=== PATIENT | female | born 2000 | race Caucasian/White ===

== ENCOUNTER 2021-02-21 15:10 | Emergency (ER) | payer MEDICAID ==
[~2021-02-21] VITALS: Ht 162.6 cm; Wt 59.0 kg
--- NOTE | 2021-02-21 15:10 | NUR ---
PT BIB RA 102 FROM HOME,SEIZURE EPISODE WITNESSED BY MOM. 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 KEPT RESTED AND COMFORTABLE. WILL CONTINUE TO MONITOR.
[2021-02-21] MEDS ORDERED: CIPR-262 PO (15:14)
[2021-02-21] MEDS ORDERED: LEVE500T9 PO (15:16)
--- NOTE | 2021-02-21 15:19 | NUR ---
AT BEDSIDE FOR EVAL.
[2021-02-21] MEDS ORDERED: LEVETIRACETAM (500MG) 500 MG in IV NS 0.9% 100 ML IV ONE (15:30)
--- NOTE | 2021-02-21 15:45 | NUR ---
BLOOD DRAWN AND SENT TO LAB.
[2021-02-21 15:49] LABS: BASOPHILS # (AUTO) 0.1 /CMM (0.0-0.2); BASOPHILS % (AUTO) 0.9 % (0.0-2.0); EOSINOPHILS % (AUTO) 1.7 % (0.0-6.0); HEMATOCRIT 38 % (33-45); HEMOGLOBIN 12.7 g/dL (11.5-14.8); LYMPHOCYTES # (AUTO) 2.8 /CMM (0.8-4.8); LYMPHOCYTES % (AUTO) 35.6 % (20.0-44.0); MEAN CORPUSCULAR HGB CONC 34 g/dl (31.0-36.0); MEAN CORPUSCULAR VOLUME 91 fL (82-100); MONOCYTES # (AUTO) 0.6 /CMM (0.1-1.30); MONOCYTES % (AUTO) 7.6 % (2.0-12.0); NEUTROPHILS # (AUTO) 4.3 /CMM (1.8-8.9); NEUTROPHILS % (AUTO) 54.2 % (43.0-81.0); PLATELET COUNT (AUTO) 279 /CMM (150-450); RED BLOOD CELL COUNT(AUTO) 4.16 MIL/uL (4.0-5.2)
[2021-02-21 15:57] LABS: CALCIUM, SERUM 8.4 mg/dL (8.5-10.1); CREATININE 0.7 mg/dL (0.6-1.3)
[2021-02-21 16:35] VITALS: BP 125/72
--- NOTE | 2021-02-21 16:35 | NUR ---
IV removed. Catheter intact and site benign. Pressure and 4x4 applied to site. No bleeding noted. Patient discharged to home in stable condition. Written and verbal after care instructions given to Patient's mom verbalizes understanding of instruction.
--- NOTE | 2021-02-21 16:40 | NUR ---
Patient does not wish to proceed with medical care recommended by Dr. Haider. Patient given information related to possible complications, up to and including , which could occur as a result of leaving the hospital at this time. Patient verbalizes understanding of risks involved due to leaving against medical advice. Patient has signed AMA form.
== END 2021-02-21 16:36 | disposition left against medical advice (07) ==
LOC: ER 15:13
DX: S90.112A Contusion of left great toe without damage to nail, initial encounter (principal); G40.909 Epilepsy, unspecified, not intractable, without status epilepticus; Z88.1 Allergy status to other antibiotic agents; Z79.899 Other long term (current) drug therapy; X58.XXXA Exposure to other specified factors, initial encounter; Y93.89 Activity, other specified; Y92.89 Other specified places as the place of occurrence of the external cause; Y99.8 Other external cause status
CPT/HCPCS: 36415; 70450; 72125; 73660; 80048; 85025; 93005; 96365; 99285; J1953; J7030

== ENCOUNTER 2021-02-26 09:16 | Emergency (ER) | payer MEDICAID ==
[~2021-02-26] VITALS: Ht 165.1 cm; Wt 70.8 kg
[~2021-02-26 09:16] MED LIST: LEVE500T9 PO
--- NOTE | 2021-02-26 09:35 | NUR ---
[id number] FROM HOME C/O WEAK & DIZZINESS THIS AM, CURRENTLY ON HER PERIOD. THE PATIENT DENIES PAIN. IN ROOM AIR AND DENIES SOB. RESPIRATION REGULAR AND UNLABORED. WILL CONTINUE TO MONITOR THE PATIENT.
--- NOTE | 2021-02-26 09:56 | NUR ---
MOTHER SAY OK FOR BLOOD DRAW
--- NOTE | 2021-02-26 10:00 | NUR ---
MOTHER AT THE BEDSIDE.
[2021-02-26 10:22] LABS: BASOPHILS # (AUTO) 0.1 /CMM (0.0-0.2); BASOPHILS % (AUTO) 0.6 % (0.0-2.0); EOSINOPHILS % (AUTO) 1.6 % (0.0-6.0); HEMATOCRIT 37 % (33-45); HEMOGLOBIN 12.4 g/dL (11.5-14.8); LYMPHOCYTES # (AUTO) 1.3 /CMM (0.8-4.8); LYMPHOCYTES % (AUTO) 10.5 % (20.0-44.0); MEAN CORPUSCULAR HGB CONC 34 g/dl (31.0-36.0); MEAN CORPUSCULAR VOLUME 91 fL (82-100); MONOCYTES % (AUTO) 7.6 % (2.0-12.0); NEUTROPHILS # (AUTO) 10.1 /CMM (1.8-8.9); NEUTROPHILS % (AUTO) 79.7 % (43.0-81.0); PLATELET COUNT (AUTO) 272 /CMM (150-450); RED BLOOD CELL COUNT(AUTO) 4.06 MIL/uL (4.0-5.2); WHITE BLOOD COUNT (AUTO) 12.6 K/uL (4.3-11.0)
[2021-02-26 10:30] LABS: CALCIUM, SERUM 8.5 mg/dL (8.5-10.1); CREATININE 0.7 mg/dL (0.6-1.3)
--- NOTE | 2021-02-26 11:24 | NUR ---
Patient discharged to home in stable condition. Written and verbal after care instructions given. Patient and her mother verbalizes understanding of instruction. The patient left ER in stable condition and accompanied with her mother.
[2021-02-26 11:27] VITALS: BP 105/64
== END 2021-02-26 11:28 | disposition home or self-care (01) ==
LOC: ER 09:18
DX: R55 Syncope and collapse (principal); Z88.1 Allergy status to other antibiotic agents; Z79.899 Other long term (current) drug therapy
CPT/HCPCS: 36415; 80048-TC; 85025-TC

== ENCOUNTER 2021-07-17 16:45 | Emergency (ER) | payer MEDICAID ==
[~2021-07-17] VITALS: Ht 154.9 cm; Wt 75.3 kg
--- NOTE | 2021-07-17 17:15 | NUR ---
[id number] FRM HOME FOR WITNESSED SEIZURE BY MOTHER. BG 43 IN FIELD D10 WAS GIVEN DEPARTMENT COORDINATOR. AWAKE VERBALLY RESPONSIVE DEPARTMENT COORDINATOR. THE PATIENT IS ALERT AND ORIENTED X2. DENIES PAIN. IN ROOM AIR AND DENIES SOB. RESPIRATION REGULAR AND UNLABORED. ATTACHED TO THE MONITOR. WILL CONTINUE TO MONITOR THE PATIENT.
--- NOTE | 2021-07-17 17:53 | NUR ---
WAITING FOR PHARM TO DELIVER ORDERED ETELVINARA
[2021-07-17] MEDS ORDERED: LEVETIRACETAM (500MG) 1,000 MG in IV NS 0.9% 100 ML IV SCH (18:00)
[2021-07-17] MEDS ORDERED: IV NS 0.9% 500 ML IV ONE (18:00)
--- NOTE | 2021-07-17 18:09 | NUR ---
THE PATIENT AND THE MOTHER REFUSED KEPPRA AND ASKED IV FLUID TO BE STOPPED DUE TO WANTING TO LEAVE AMA. THE PATIENT AND THE MOTHER PROVIDED EXPLANTION. THEY STILL INSISTED TO GO AMA. DR KATERINA CAMARILLO.
--- NOTE | 2021-07-17 18:10 | NUR ---
IV removed. Catheter intact and site benign. Pressure and 4x4 applied to site. No bleeding noted.Patient does not wish to proceed with medical care recommended by Dr. Haider. Patient given information related to possible complications, up to and including , which could occur as a result of leaving the hospital at this time. Patient verbalizes understanding of risks involved due to leaving against medical advice. Patient has signed AMA form. Addendum: 07/17/21 at 1811 by RUIZ LEFT ER WITH MOTHER
[2021-07-17 18:12] VITALS: BP 116/63
== END 2021-07-17 18:12 | disposition left against medical advice (07) ==
LOC: ER 16:47
DX: G40.909 Epilepsy, unspecified, not intractable, without status epilepticus (principal); E86.0 Dehydration; Z88.1 Allergy status to other antibiotic agents
CPT/HCPCS: 82962; 96360; 99283; J1953; J7030

== ENCOUNTER 2021-07-25 08:42 | Emergency (ER) | payer MEDICAID ==
[~2021-07-25] VITALS: Ht 167.6 cm; Wt 72.6 kg
[2021-07-25] MEDS ORDERED: IV NS 0.9% 500 ML BAG IV ONE (09:00)
--- NOTE | 2021-07-25 09:21 | NUR ---
PATIENTS MOTHER REFUSED BLOOD DRAW. GOOD JAY AWARE.
--- NOTE | 2021-07-25 09:25 | NUR ---
RADIOLOGY AT BEDSIDE FOR CHEST XRAY.
--- NOTE | 2021-07-25 09:32 | NUR ---
mother refusing lab test. agreed to a chest xray. states will just go to [facility]. dr guerrier into see patient and spoke to mother. Patient does not wish to proceed with medical care recommended by . Patient given information related to possible complications, up to and including , which could occur as a result of leaving the hospital at this time. Patient verbalizes understanding of risks involved due to leaving against medical advice. Patient has signed AMA form.
[2021-07-25 09:34] VITALS: BP 110/60
== END 2021-07-25 09:35 | disposition left against medical advice (07) ==
LOC: ER 08:51
DX: G40.909 Epilepsy, unspecified, not intractable, without status epilepticus (principal); Z88.1 Allergy status to other antibiotic agents; Z79.899 Other long term (current) drug therapy
CPT/HCPCS: 71045-TC; 82962-TC

== ENCOUNTER 2021-08-15 19:40 | Emergency (ER) | payer MEDICAID ==
[~2021-08-15] VITALS: Ht 157.5 cm; Wt 76.7 kg
--- NOTE | 2021-08-15 19:49 | NUR ---
PT BIBRA C/O SEIZURE. PER MOTHER, SEIZURE LASTED "3 MIN AFTER BEING GIVEN KEPRA". PT AAOX4 BREATHING EVENLY AND UNLABORED. PT ATTACHED TO MONITOR AND POX. SEIZURE PRECAUTIONS IN PLACE. SKIN IS WARM AND DRY. LEFT AC 20G INITATED. MD AT BEDSIDE. WILL CONTINUE TO MONITOR.
--- NOTE | 2021-08-15 19:53 | NUR ---
BLOOD SENT TO LAB
--- NOTE | 2021-08-15 20:15 | NUR ---
TAKEN TO CT
[2021-08-15 20:17] LABS: BASOPHILS # (AUTO) 0.1 K/uL (0.0-0.2); EOSINOPHILS % (AUTO) 1.1 % (0.0-6.0); HEMATOCRIT 43 % (33-45); HEMOGLOBIN 14.2 g/dL (11.5-14.8); MEAN CORPUSCULAR HGB CONC 33 g/dl (31.0-36.0); MEAN CORPUSCULAR VOLUME 92 fL (82-100); MONOCYTES % (AUTO) 8.1 % (2.0-12.0); NEUTROPHILS % (AUTO) 40.8 % (43.0-81.0); PLATELET COUNT (AUTO) 315 K/uL (150-450); RED BLOOD CELL COUNT(AUTO) 4.65 MIL/uL (4.0-5.2); WHITE BLOOD COUNT (AUTO) 12.2 K/uL (4.3-11.0)
[2021-08-15 20:38] LABS: CALCIUM, SERUM 8.8 mg/dL (8.5-10.1); CARBON DIOXIDE 24 mmol/L (21-32); CHLORIDE 103 mmol/L (98-107); CREATININE 0.9 mg/dL (0.6-1.3); GLUCOSE 76 mg/dL (74-106); POTASSIUM 4.3 mmol/L (3.5-5.1); SODIUM SERUM 140 mmol/L (136-145); UREA NITROGEN, BLOOD 8 mg/dL (7-18)
[2021-08-15 20:42] LABS: ALANINE AMINOTRANSFERASE 21 U/L (12-78); ALBUMIN 4.3 g/dL (3.4-5.0); ALKALINE PHOSPHATASE 54 U/L (46-116); ASPARTATE AMINOTRANSFERASE 19 U/L (15-37); BILIRUBIN,DIRECT 0.1 mg/dL (0.0-0.2); BILIRUBIN,TOTAL 0.1 mg/dL (0.2-1.0); TOTAL PROTEIN, SERUM 8.2 g/dL (6.4-8.2)
--- NOTE | 2021-08-15 20:43 | NUR ---
COVID SWAB SENT TO LAB
--- NOTE | 2021-08-15 20:48 | NUR ---
GUILLERMINA SENT TO LAB
--- NOTE | 2021-08-15 21:00 | NUR ---
LACTIC 5.5
[2021-08-15] MEDS ORDERED: IV NS 0.9% 1,000 ML BAG IV ONE (21:30)
--- NOTE | 2021-08-15 21:41 | NUR ---
Patient does not wish to proceed with medical care recommended by Dr. DAVIDSON. Patient given information related to possible complications, up to and including , which could occur as a result of leaving the hospital at this time. Patient verbalizes understanding of risks involved due to leaving against medical advice. Patient has signed AMA form. IV removed. Catheter intact and site benign. Pressure and 4x4 applied to site. No bleeding noted. Pt wheeled out to family car with mother.
[2021-08-15 21:56] VITALS: BP 100/53
[2021-08-15 22:07] LABS: BILIRUBIN,URINE NEGATIVE (NEGATIVE); COLOR,URINE YELLOW (YELLOW); LEUKOCYTE ESTERASE ,URINE NEGATIVE (NEGATIVE); NITRITE, URINE NEGATIVE (NEGATIVE); PROTEIN,URINE NEGATIVE (NEGATIVE); UGLUCOSE NEGATIVE (NEGATIVE); UROBILINOGEN,URINE 0.2 EU/dL (0.2)
[2021-08-15 22:32] LABS: BACTERIA,URINE Few /HPF (None Seen); RBC,URINE 0-2 /HPF (0-2); SQUAMOUS EPITHELIAL CELL,UR Many /HPF (None Seen)
== END 2021-08-15 20:45 | disposition left against medical advice (07) ==
LOC: ER 19:42
DX: G40.909 Epilepsy, unspecified, not intractable, without status epilepticus (principal); E87.2 Acidosis; Z20.822 Contact with and (suspected) exposure to COVID-19; H54.7 Unspecified visual loss; Z79.899 Other long term (current) drug therapy; Z88.1 Allergy status to other antibiotic agents; Z88.0 Allergy status to penicillin
CPT/HCPCS: 36415; 70450; 71045; 80048; 80076; 81001; 82962; 83605; 84703; 85025; 85730; 87426; 96360; 99285; C9803; J7030

== ENCOUNTER 2022-01-07 07:07 | Emergency (ER) | payer MEDICAID ==
[~2022-01-07] VITALS: Ht 154.9 cm; Wt 68.0 kg
--- NOTE | 2022-01-07 07:12 | NUR ---
FINESSE 102 AND MOTHER FOR EVALUATION OF POST SEIZURE EPISODE IN BED AT HOME. NO FALL. POST ICTAL ON TRIAGE. PATIENT PLACED IN BED 10 ON SEIZURE PRECAUTION. PATIENT ON MONITOR AND POX.
--- NOTE | 2022-01-07 07:15 | NUR ---
@ BEDSIDE WITH FAMILY MEMBER
[2022-01-07] MEDS ORDERED: LEVE500T9 PO (07:23)
--- NOTE | 2022-01-07 07:24 | NUR ---
PATIENT PASSES THE SWALLOW EVAL AT THE BED SIDE. MOM IS INSISTING TO GIVE THE PATINET'S KEPPRA 500MG PILL WHICH WAS APPROVED BY DR. CHANDLER, MEDICATION WAS ADMINISTERED FOLLOWING ASPIRATION PRECAUTION W, NO CHOCKING.
--- NOTE | 2022-01-07 08:31 | NUR ---
Patient discharged to home in stable condition. Written and verbal after care instructions given. Patient and Parent verbalizes understanding of instruction.
[2022-01-07 08:32] VITALS: BP 110/64
== END 2022-01-07 08:33 | disposition home or self-care (01) ==
LOC: ER 07:11
DX: G40.909 Epilepsy, unspecified, not intractable, without status epilepticus (principal); H54.7 Unspecified visual loss; Z86.59 Personal history of other mental and behavioral disorders; Z88.0 Allergy status to penicillin; Z88.1 Allergy status to other antibiotic agents; Z79.899 Other long term (current) drug therapy

== ENCOUNTER 2022-01-31 19:12 | Emergency (ER) | payer MEDICAID ==
[~2022-01-31] VITALS: Ht 154.9 cm; Wt 68.9 kg
--- NOTE | 2022-01-31 19:17 | NUR ---
BIBMOTHER C/O SEIZURE 2-3 MIN SEIZURE IN THE CAR. PLACED COMFORTABLY IN BED. VITALS CHECKED. CHANGED TO HOSPITAL GOWN. PATIENT IS RESTLESS AND A BIT CONFUSED POST SIEZURE. MOTHER AT BEDSIDE. OXYGEN INHALATION AT 2LPM VIA NC SATURATING 97%, 67% IN RA.
--- NOTE | 2022-01-31 19:18 | NUR ---
SEEN BY DR DAVIDSON AT BEDSIDE.
--- NOTE | 2022-01-31 19:21 | NUR ---
SALINE LOCK ESTABLISHED, BLOOD DRAWN AND SENT TO LAB
--- NOTE | 2022-01-31 20:04 | NUR ---
PT UNABLE TO PROVIDE URINE SAMPLE AT THIS TIME
[2022-01-31 20:26] LABS: BASOPHILS # (AUTO) 0.2 K/uL (0.0-0.2); BASOPHILS % (AUTO) 1.1 % (0.0-2.0); EOSINOPHILS % (AUTO) 1.5 % (0.0-6.0); HEMATOCRIT 40 % (33-45); HEMOGLOBIN 13.2 g/dL (11.5-14.8); LYMPHOCYTES % (AUTO) 49.8 % (20.0-44.0); MEAN CORPUSCULAR HGB CONC 33 g/dl (31.0-36.0); MEAN CORPUSCULAR VOLUME 91 fL (82-100); MONOCYTES # (AUTO) 1.2 K/uL (0.1-1.30); MONOCYTES % (AUTO) 7.4 % (2.0-12.0); NEUTROPHILS # (AUTO) 6.4 K/uL (1.8-8.9); NEUTROPHILS % (AUTO) 40.2 % (43.0-81.0); PLATELET COUNT (AUTO) 348 K/uL (150-450); RED BLOOD CELL COUNT(AUTO) 4.42 MIL/uL (4.0-5.2)
[2022-01-31 21:36] LABS: ALBUMIN 4.1 g/dL (3.4-5.0); BILIRUBIN,DIRECT 0.1 mg/dL (0.0-0.2); BILIRUBIN,TOTAL 0.2 mg/dL (0.2-1.0); CREATININE 0.9 mg/dL (0.6-1.3); POTASSIUM 3.7 mmol/L (3.5-5.1)
--- NOTE | 2022-01-31 22:07 | NUR ---
Patient discharged to home in stable condition. Written and verbal after care instructions given. Patient verbalizes understanding of instruction. Pt ambulated out of ED with mother.
--- NOTE | 2022-01-31 22:07 | NUR ---
IV removed. Catheter intact and site benign. Pressure and 4x4 applied to site. No bleeding noted.
[2022-01-31 22:22] VITALS: BP 110/78
== END 2022-01-31 22:27 | disposition home or self-care (01) ==
LOC: ER 19:15
DX: G40.409 Other generalized epilepsy and epileptic syndromes, not intractable, without status epilepticus (principal); H54.8 Legal blindness, as defined in USA; Z86.69 Personal history of other diseases of the nervous system and sense organs; Z86.59 Personal history of other mental and behavioral disorders; Z88.0 Allergy status to penicillin; Z88.8 Allergy status to other drugs, medicaments and biological substances; Z79.899 Other long term (current) drug therapy
CPT/HCPCS: 36415; 71045-TC; 80048-TC; 80076-TC; 82962-TC; 85025-TC; 85730-TC

== ENCOUNTER 2022-02-06 12:45 | Emergency (ER) | payer BC, MEDICAID ==
[~2022-02-06] VITALS: Ht 154.9 cm; Wt 73.5 kg
--- NOTE | 2022-02-06 12:51 | NUR ---
AT BED SIDE
--- NOTE | 2022-02-06 12:55 | NUR ---
JACQUES C/O SEIZURE LASTING 2-3 MINUTES PER FAMILY, WENT TO GET BURGER WITH THE SISTER. DROWSY ON ARRIVAL, RESPONDING TO VERBAL STIMULI.
--- NOTE | 2022-02-06 13:25 | NUR ---
PATIENT IS HAVING HEADACHE. MD AWARE
[2022-02-06] MEDS ORDERED: KETOROLAC TROMETHAMINE INJ 30 MG/ML VIAL IV ONE (13:30)
[2022-02-06] MEDS ORDERED: IV NS 0.9% 1,000 ML IV ONE (13:30)
[2022-02-06] MEDS ORDERED: ACETAMINOPHEN 325 MG TABLET PO ONE (13:30)
[2022-02-06] MEDS ORDERED: KETOROLAC TROMETHAMINE 15 MG/ML VIAL ONE (13:33)
[2022-02-06] MEDS ORDERED: ACETAMINOPHEN 325 MG TABLET ONE (13:35)
--- NOTE | 2022-02-06 14:50 | NUR ---
IV removed. Catheter intact and site benign. Pressure and 4x4 applied to site. No bleeding noted.Patient discharged to home in stable condition. Written and verbal after care instructions given. Patient verbalizes understanding of instruction.
[2022-02-06 14:56] VITALS: BP 115/64
== END 2022-02-06 14:50 | disposition home or self-care (01) ==
LOC: ER 12:47
DX: G40.509 Epileptic seizures related to external causes, not intractable, without status epilepticus (principal); H54.8 Legal blindness, as defined in USA; Z86.59 Personal history of other mental and behavioral disorders; Z88.0 Allergy status to penicillin; Z88.8 Allergy status to other drugs, medicaments and biological substances; Z79.899 Other long term (current) drug therapy
CPT/HCPCS: 84703; 96360; 99283; J7030; J1885

== ENCOUNTER 2022-02-08 19:26 | Emergency (ER) | payer BC ==
[~2022-02-08] VITALS: Ht 154.9 cm; Wt 68.5 kg
[2022-02-08] MEDS ORDERED: ACETAMINOPHEN 325 MG TABLET ONE (20:43)
[2022-02-08] MEDS ORDERED: ACETAMINOPHEN ES 500 MG TABLET PO ONE (21:00)
--- NOTE | 2022-02-08 22:40 | NUR ---
Patient discharged to home in stable condition. Written and verbal after care instructions given. Patient verbalizes understanding of instruction.
[2022-02-08 22:41] VITALS: BP 101/60
== END 2022-02-08 22:41 | disposition home or self-care (01) ==
LOC: ER 19:27
DX: G40.909 Epilepsy, unspecified, not intractable, without status epilepticus (principal); H54.8 Legal blindness, as defined in USA; Z86.69 Personal history of other diseases of the nervous system and sense organs; Z88.0 Allergy status to penicillin; Z88.8 Allergy status to other drugs, medicaments and biological substances; Z79.899 Other long term (current) drug therapy

== ENCOUNTER 2022-04-02 22:34 | Emergency (ER) | payer BC, MEDICAID ==
[~2022-04-02] VITALS: Ht 157.5 cm; Wt 68.5 kg
--- NOTE | 2022-04-02 22:45 | NUR ---
FINESSE FROM HOME TO ER BED 4. POST ICTAL. NOT IN RESP DISTRESS, BREATHING EVEN AND UNLABORED. 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 PT HAS HX OF SEIZURE AND COMPLIANT WITH MEDS PER MOTHER. MOTHER REPORTED THAT THE PT HAS A RECENT KEPRA INCREASE HER NIGHT DOSE OF 500MG WAS INCREASED TO 750MG LAST FRIDAY AND TAKE KEPRA 500MG IN AM WHICH DID CHANGE. PT'S LAST REPORTED SEIXURE WAS ON FRIDAY. PT IS PLACED ON SEIZURE PRECAUTION. ON MONITOR AND MOTHER AT BEDSIDE.AWAITING MD FOR EVAL.
--- NOTE | 2022-04-02 23:56 | NUR ---
waiver signed by mother (medical decision maker) and placed in chart
--- NOTE | 2022-04-03 01:08 | NUR ---
CALLED [facility] TO FOLLOW UP ON XRAY READ
[2022-04-03 02:04] VITALS: BP 101/60
--- NOTE | 2022-04-03 02:04 | NUR ---
Patient discharged to home in stable condition. Written and verbal after care instructions given. Patient verbalizes understanding of instruction.
== END 2022-04-03 02:10 | disposition home or self-care (01) ==
LOC: ER 22:36
DX: G40.509 Epileptic seizures related to external causes, not intractable, without status epilepticus (principal); E75.4 Neuronal ceroid lipofuscinosis; Z86.69 Personal history of other diseases of the nervous system and sense organs; H54.7 Unspecified visual loss; Z88.8 Allergy status to other drugs, medicaments and biological substances; Z79.899 Other long term (current) drug therapy
CPT/HCPCS: 71045-TC

== ENCOUNTER 2022-04-04 19:05 | Emergency (ER) | payer MEDICAID ==
[~2022-04-04] VITALS: Ht 157.5 cm; Wt 68.5 kg
--- NOTE | 2022-04-04 19:15 | NUR ---
LIBBY THIS 21YO FEMALE PATIENT, LEGALLY BLIND ACCOMPANIED BY MOTHER. PATIENT IS ALERT, ORIENTED X4. RESPONDS TO VERBAL/NONVERBAL STIMULI. ATTACHED TO MONITOR. VITALS CHECKED.
--- NOTE | 2022-04-04 19:27 | NUR ---
MOTHER REFUSED TO HAVE IV ACCESS, BLOOD DRAWN FROM PATIENT. SHE WANTS TO TRANSFER PATIENT TO [facility] BUT EXPLAINED TO HER THAT WE NEED TO HAVE A BASELINE FIRST AND REASON FOR TRANSFER.
--- NOTE | 2022-04-04 19:40 | NUR ---
SEEN BY DR HUTCHISON AT BEDSIDE.
--- NOTE | 2022-04-04 20:16 | NUR ---
MOTHER SIGNED WAIVER FOR AGAINST MEDICAL ADVICE.
--- NOTE | 2022-04-04 20:16 | NUR ---
PATIENT WILL GO TO ANOTHER HOSPITAL ACCOMPANIED BY MOTHER.
[2022-04-04 20:18] VITALS: BP 101/62
== END 2022-04-04 20:19 | disposition left against medical advice (07) ==
LOC: ER 19:19
DX: E75.4 Neuronal ceroid lipofuscinosis (principal); Z86.69 Personal history of other diseases of the nervous system and sense organs; Z88.8 Allergy status to other drugs, medicaments and biological substances; Z79.899 Other long term (current) drug therapy